=== PATIENT | female | born 1970 | race Caucasian/White ===

== ENCOUNTER 2019-11-07 14:51 | Emergency (ER) | payer SELFPAY ==
[~2019-11-07] VITALS: Ht 167.6 cm; Wt 72.6 kg
[2019-11-07] MEDS ORDERED: PSEU120ER PO (15:14)
[2019-11-07 16:38] LABS: BASOPHILS ABSOLUTE AUTO 0.04 K/mm3 (0.00-0.23); BASOPHILS PERCENT AUTO 1 % (0-2); EOSINOPHILS ABSOLUTE AUTO 0.02 K/mm3 (0.00-0.68); EOSINOPHILS PERCENT AUTO 0 % (0-6); Hemoglobin 16.3 g/dL (11.5-16.0); IMMATURE GRAN ABSOLUTE AUTO 0.02 K/mm3 (0.00-0.10); IMMATURE GRAN PERCENT AUTO 0 % (0-1); LYMPHOCYTES ABSOLUTE AUTO 1.74 K/mm3 (0.84-5.20); LYMPHOCYTES PERCENT AUTO 26 % (21-46); MONOCYTES ABSOLUTE AUTO 0.21 K/mm3 (0.16-1.47); MONOCYTES PERCENT AUTO 3 % (4-13); Mean Corpuscular HGB 32.1 pg (26.0-34.0); Mean Corpuscular Volume 95 fL (80-100); Mean Platelet Volume 9.9 fL (9.1-12.4); NEUTROPHILS ABSOLUTE AUTO 4.55 K/mm3 (1.96-9.15); NEUTROPHILS PERCENT AUTO 69 % (41-73); Platelet Count 282 K/mm3 (150-400); RDW Coefficient Variation 11.8 % (11.7-14.2); Red Blood Cell Count 5.07 M/mm3 (3.80-5.20); White Blood Cell Count 6.58 K/mm3 (4.00-11.30)
[2019-11-07 16:56] LABS: Alanine Aminotransfer (ALT/SGP 39 U/L (12-78); Albumin, Blood 4.3 g/dL (3.4-5.0); Alk Phos 95 U/L (50-136); Anion Gap 5 mmol/L (6-16); Aspartate Aminotrans (AST/SGOT 28 U/L (12-37); Bilirubin, Total 0.5 mg/dL (0.1-1.0); Blood Urea Nitrogen 12 mg/dL (8-24); Bun/Creatinine Ratio 16.8 (12.0-20.0); CO2, Blood 30 mmol/L (21-32); Calcium, Blood 9.8 mg/dL (8.5-10.1); Chloride, Blood 104 mmol/L (98-108); Creatinine, Blood 0.72 mg/dL (0.40-1.00); Globulin, Blood 4.1 g/dL (2.2-4.0); Glomerular Filtration Rate >60 (60-); Glucose, Blood 87 mg/dL (70-99); Potassium, Blood 3.5 mmol/L (3.5-5.5); Sodium, Blood 139 mmol/L (136-145); Total Protein, Blood 8.4 g/dL (6.4-8.2)
[2019-11-07] MEDS ORDERED: Prinivil10 MG PO (17:07)
== END 2019-11-07 17:25 | disposition home or self-care (01) ==
LOC: ER 14:51
PROVIDERS: Emergency Medicine
DX: I10 Essential (primary) hypertension (principal)
CPT/HCPCS: 36415; 80053; 85025; 93005; 93010; 99283-25